=== PATIENT | female | born 1980 | race Caucasian/White ===

== ENCOUNTER 2016-10-12 09:57 | Emergency (ER) | payer BC ==
[~2016-10-12] VITALS: Ht 167.6 cm; Wt 79.4 kg
[~2016-10-12 09:57] MED LIST: CIPRO500 M1 PO; COZAAR 50 MG TA50 M2 PO; EXCEDRIN MIGRA1 EAC1 PO; FLOMAX0.4 MG PO; IBUPROFEN 800800 M1 PO; NORCO 5-325 TA1 EACH PO; SPRINTEC1 EACH PO
[2016-10-12] MEDS ORDERED: LOSARTAN POTAS100 MG PO (10:14)
[2016-10-12 11:04] LABS: ABSOLUTE NEUTROPHILS 4.2 thou/uL (1.4-8.2); BASOPHILS 0.7 % (0.0-2.0); EOSINOPHILS 1.2 % (0.0-3.0); HEMATOCRIT 38.9 % (37.0-47.0); LYMPHOCYTES 23.4 % (24.0-44.0); MCH 27.3 pg (26.0-34.0); MCHC 33.4 g/dL (28.0-37.0); MCV 81.5 fL (80.0-100.0); MONOCYTES 5.2 % (1.0-8.0); PLATELET COUNT 262 thou/uL (150-400); POLYS 69.5 % (36.0-66.0); RBC 4.78 mil/uL (4.20-5.00); RDW 16.1 % (10.5-14.5)
[2016-10-12 11:07] LABS: CALCIUM 8.7 mg/dL (8.5-10.1); POTASSIUM 4.3 mmol/L (3.5-5.1)
[2016-10-12 11:08] LABS: MANUAL DIFF NO
[2016-10-12 11:11] LABS: URINE BILIRUBIN NEGATIVE (Negative); URINE BLOOD 3+ (Negative); URINE COLOR RED; URINE GLUCOSE-RANDOM* NEGATIVE (Negative); URINE KETONES NEGATIVE (Negative); URINE NITRITE POSITIVE (Negative); URINE PROTEIN (DIPSTICK) 3+ (Negative); URINE SPECIFIC GRAVITY >= 1.030 (1.003-1.035)
[2016-10-12 11:18] LABS: URINE RBC >20 Many /HPF (0-2)
[2016-10-12 11:19] LABS: BACTERIA 1-9 Few /HPF (None Seen); CASTS None Seen /LPF (None Seen); CRYSTALS None Seen /LPF (None Seen); SQUAMOUS 0-3 Few /LPF (0-3); URINE WBC 6-15 Few /HPF (0-5)
[2016-10-12] MEDS ORDERED: KEFLEX500 MG PO (13:33)
[2016-10-12] MEDS ORDERED: NORCO 5-325 TA1 EACH PO (13:33)
[2016-10-12 14:26] VITALS: BP 134/84
== END 2016-10-12 14:27 | disposition home or self-care (01) ==
LOC: ER 09:57
PROVIDERS: Emergency Medicine
DX: N13.2 Hydronephrosis with renal and ureteral calculous obstruction (principal); I10 Essential (primary) hypertension; Z87.442 Personal history of urinary calculi; Z90.49 Acquired absence of other specified parts of digestive tract; Z88.0 Allergy status to penicillin; Z88.5 Allergy status to narcotic agent